=== PATIENT | female | born 1975 | race American Indian/Alaskan Native ===

== ENCOUNTER 2017-04-05 11:52 | Emergency (ER) | payer OTHER ==
[~2017-04-05] VITALS: Ht 160 cm; Wt 110.4 kg
[2017-04-05 12:09] VITALS: BP 153/91
[2017-04-05] MEDS ORDERED: KETOROLAC 30 MG/1 ML ONE (12:43)
[2017-04-05] MEDS ORDERED: DIAZEPAM 5 MG TABLET ONE (12:43)
[2017-04-05] MEDS ORDERED: OXYcodone/APAP 5/325MG TABLET ONE (12:43)
[2017-04-05] MEDS ORDERED: DIAZEPAM 5 MG TABLET PO ONE (13:00)
[2017-04-05] MEDS ORDERED: OXYcodone/APAP 5/325MG TABLET PO ONE (13:00)
[2017-04-05] MEDS ORDERED: KETOROLAC 30 MG/1 ML IM ONE (13:00)
== END 2017-04-05 14:15 | disposition home or self-care (01) ==
LOC: ED 14:09
DX: M54.5 Low back pain (principal); G89.29 Other chronic pain; I10 Essential (primary) hypertension
CPT/HCPCS: 96372; 99283; J1885

== ENCOUNTER → 2017-04-15 | Outpatient (CLI) | payer OTHER | END | disposition home or self-care (01) | LOC: EDSTATUS 04-13 15:00 → CVU 07:47 → EDSTATUS 08:00 | DX: M51.37 Other intervertebral disc degeneration, lumbosacral region (principal); M48.07 Spinal stenosis, lumbosacral region; M25.78 Osteophyte, vertebrae; I07.1 Rheumatic tricuspid insufficiency; I10 Essential (primary) hypertension; N92.0 Excessive and frequent menstruation with regular cycle; Z87.891 Personal history of nicotine dependence | CPT/HCPCS: 72148; 93306 ==